=== PATIENT | male | born 1975 | race Caucasian/White ===

== ENCOUNTER 2016-10-05 01:24 | Emergency (ER) | payer SELFPAY ==
[2016-10-05] MEDS ORDERED: IPRATROPIUM/ALBUTEROL 0.5-2.5 MG/3 ML AMPUL NEB ONE (02:54)
[2016-10-05] MEDS ORDERED: HYDROCODONE BIT/HOMATROPINE SYRUP 5 ML UDCUP PO ONE (02:54)
[2016-10-05] MEDS ORDERED: PREDNISONE 20 MG TABLET PO ONE (02:54)
[2016-10-05] MEDS ORDERED: BENZONATATE 100 MG CAPSULE PO ONE (03:35)
[2016-10-05] MEDS ORDERED: HYDROCODONE/ACETAMINOPHEN 5-325 MG TABLET PO ONE (03:35)
--- NOTE | 2016-10-05 03:39 | ER Document Report ---
ED General - General Chief Complaint: Cough Stated Complaint: CHEST WALL PAIN Notes: Patient is a 40-year-old male who presents with complaints of cough for close to 2 weeks. His abdomen being [place] with some friends. They all became sick. They've been coughing. He went to urgent care and was prescribed an antibiotic. He was feeling that her briefly but now is starting to cough again. Today he coughed hard and felt sharp pain into his right side. He did cough up "nickel size" amount of blood. 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 He's never had any severe or significant problems with bleeding. He's had no further coughing up of blood. He complains mainly now of pain in his right side every time he coughs. He is a smoker. Denies any fevers. No vomiting. No other complaints at this time. TRAVEL OUTSIDE OF THE [place] IN LAST 30 DAYS: No - Related Data Allergies/Adverse Reactions: aspirin [Aspirin] Adverse Reaction (Verified 07/13/15 09:37) NSAIDS (Non-Steroidal Anti-Inflamma [Nsaids] Adverse Reaction (Verified 09:37) Past Medical History - Social History Smoking Status: Current Every Day Smoker Frequency of alcohol use: None Drug Abuse: None Family History: Reviewed & Not Pertinent Patient has suicidal ideation: No Patient has homicidal ideation: No Pulmonary Medical History: Reports: Hx Bronchitis, Hx Pneumonia Neurological Medical History: Reports: Hx Migraine Endocrine Medical History: Reports: Hx Diabetes Mellitus Type 2 Renal/ Medical History: Denies: Hx Peritoneal Dialysis Past Surgical History: Reports: Hx Orthopedic Surgery - rt foot torn ligament, L5-S1 fusion - Immunizations Hx Diphtheria, Pertussis, Tetanus Vaccination: Yes - 2007 Review of Systems - Review of Systems Notes: My Normal Review Basic REVIEW OF SYSTEMS: CONSTITUTIONAL : Denies fever, chills, or sweats. Denies recent illness. EENT: Denies eye, ear, throat, or mouth pain or symptoms. Denies nasal or sinus congestion. CARDIOVASCULAR: Pain in right side of chest from coughing. RESPIRATORY: Cough GASTROINTESTINAL: Denies abdominal pain. Denies nausea, vomiting, or diarrhea. Denies constipation. Last BM: MUSCULOSKELETAL: Denies neck or back pain or joint pain or swelling. SKIN: Denies rash or skin lesions. HEMATOLOGIC : Carrier for factor XI deficiency. NEUROLOGICAL: Denies altered mental status or loss of consciousness. Denies headache. Denies weakness or paralysis or loss of use of either side. Denies problems with gait or speech. Denies sensory or motor loss. ALL OTHER SYSTEMS REVIEWED AND NEGATIVE. Physical Exam - Vital signs Vitals: Temp Pulse Resp BP Pulse Ox 98.1 F 80 18 121/86 H 97 10/05/16 01:31 10/05/16 01:31 10/05/16 01:10/05/16 01:10/05/16 01:31 - Notes Notes: General Appearance: Well nourished, alert, cooperative, no acute distress, moderate obvious discomfort. Current dry cough during exam. Vitals: reviewed, See vital signs table. Head: no swelling or tenderness to the head Eyes: PERRL, EOMI, Conjuctiva clear Mouth: No decreasd moisture Throat: No tonsillar inflammation, No airway obstruction, No lymphadenopathy Neck: Supple, no neck tenderness, No thyromegaly Lungs: No wheezing, No rales, No rhonci, No accessory muscle use, good air exchange bilaterally. Heart: Normal rate, Regular rythm, No murmur, no rub Chest wall: Pain to palpation of the right lateral ribs of the chest wall. Abdomen: Normal BS, soft, No rigidity, No abdominal tenderness, No guarding, no rebound, no abdominal masses, no organomegaly Extremities: good pulses in all extremities, , no edema. Skin: warm, dry, appropriate color, no rash Neuro: speech clear, oriented x 3, normal affect, responds appropriately to questions. Course - Vital Signs Vital signs: Temp Pulse Resp BP Pulse Ox 98.1 F 80 18 121/86 H 97 10/05/16 01:31 10/05/16 01:31 10/05/16 01:10/05/16 01:10/05/16 01:31 - Transfer of Care Notes: 10/05/16 04:24 Patient still has some cough but just decreasing slightly since receiving the breathing treatment. I will discharge him home with prednisone and an albuterol inhaler. We'll discharge him home with Hycodan cough medicine to help with the cough as well as the pain. Encouraged to return to ER immediately if he has fevers, recurrent coughing up of blood, worsening pain, difficulty breathing, or feels unwell. Patient agrees with plan and will be discharged home. Dictation of this chart was performed using voice recognition software; therefore, there may be some unintended grammatical errors. Discharge - Discharge Clinical Impression: Bronchitis, Rib pain on right side, Pleurisy Condition: Good Disposition: HOME, SELF-CARE Instructions: Oral Narcotic Medication ([facility]) Additional Instructions: BRONCHITIS: You have acute bronchitis. This disease is an infection or inflammation of the air passageways in your lungs. Symptoms usually include cough, low grade fever, shortness of breath, and wheezing. The cough usually persists for a couple of weeks. Most cases of bronchitis get better without antibiotics. We prescribe antibiotics when we believe bacteria are damaging your airways, or if there's high risk the bronchitis will worsen into pneumonia. Increase your fluid intake. A cool mist humidifier may make your lungs more comfortable. An expectorant (cough medicine that loosens phlegm) can help. If you smoke, STOP!!! Recovery from bronchitis can be somewhat slow, but you should see improvement within a day or two. Repeated episodes of bronchitis may result in lung damage -- for example, chronic bronchitis, recurrent pneumonias, or emphysema. Call the doctor if you develop increasing fever, shortness of breath, chest pain, bloody sputum, or otherwise worsen. If you have not improved at all after several days, contact the physician. COUGH-SUPPRESSANT & EXPECTORANT MEDICATION: You are to use a cough medication as needed for relief of symptoms. This medicine is a combination of an expectorant (to make the mucous thinner and more easily "coughed up") and a cough suppressant (to reduce the frequency of coughing). The cough-suppressant medicine is related to narcotics. You may experience mild nausea and sleepiness. Some patients who are very sensitive to narcotics may have stomach pain from this medicine. Taking the medicine with food reduces these side effects. Do not drive or work with machinery until you know how this medicine affects you. The expectorant should have no side effects. Iodine-containing expectorants (such as organidin) should not be taken by persons with active thyroid disease unless approved by your doctor. Call the doctor if you develop shortness of breath, hives, rash, itching, lightheadedness, or severe nausea and vomiting. INHALED BRONCHODILATORS: You have received a treatment of and/or prescription for an inhaled bronchodilator -- a medication which stimulates the airways in the lung to dilate. This improves the flow of air in asthma, bronchitis, and emphysema. These medicines have some similarity to adrenaline, and can cause similar side effects: shakiness, racing heart, and a sense of nervousness. These side effects decrease with time. Contact your doctor if these side effects are severe. Do not over-use the medicine. Too-frequent use of the inhaler may make it ineffective. Call your doctor if the inhaler is not controlling your symptoms at the prescribed doses. SMOKING: If you smoke, you should stop smoking. The tar and chemicals in cigarette smoke are harmful. Smoking has been shown to cause: emphysema chronic bronchitis lung cancer mouth and throat cancer stomach and pancreas cancer premature aging defects In addition, smoking increases ear and lung infections in children of smokers. FOLLOW-UP CARE: If you have been referred to a physician for follow-up care, call the physician s office for an appointment as you were instructed or within the next two days. If you experience worsening or a significant change in your symptoms, notify the physician immediately or return to the Emergency Department at any time for re-evaluation. Please return to the ER immediately if you have worsening pain, fevers, vomiting , or recurrence of coughing up blood. Please follow up with a doctor in 2 days for reevaluation. You can use the albuterol inhaler as 2 puffs every 4 hours as needed for cough and wheezing. Prescriptions: Hydrocodone Bit/Homatropine [Hycodan Syrup 5-1.5 mg/5 ml Ud Cup] 5 ml PO Q4HP PRN #100 ml PRN Reason: Prednisone [Deltasone 20 mg Tablet] 3 tab PO DAILY 3 Days Forms: Return to Work
[2016-10-05 05:04] VITALS: BP 118/76
== END 2016-10-05 04:45 | disposition home or self-care (01) ==
LOC: ER 01:24
DX: J40 Bronchitis, not specified as acute or chronic (principal); R09.1 Pleurisy; R07.81 Pleurodynia; R07.89 Other chest pain; F17.200 Nicotine dependence, unspecified, uncomplicated; E11.9 Type 2 diabetes mellitus without complications; Z88.6 Allergy status to analgesic agent; Z98.1 Arthrodesis status
CPT/HCPCS: 99283; 71101; J7512; J7620

== ENCOUNTER 2017-03-11 16:52 | Emergency (ER) | payer SELFPAY ==
[2017-03-11 17:06] VITALS: BP 132/76
[2017-03-11] MEDS ORDERED: PREDNISONE 20 MG TABLET PO ONE (17:57)
--- NOTE | 2017-03-11 18:06 | ER Document Report ---
ED Extremity Problem, Upper - General Chief Complaint: Elbow Injury Stated Complaint: ELBOW INJURY Time Seen by Provider: 03/11/17 17:41 Mode of Arrival: Ambulatory Information source: Patient Notes: 41-year-old male presents to ED for complaint of right elbow pain. He states he has a history of tendinitis. He states the pain radiates to his hand and his armpit. He states he has a large firm tendon in his antecubital and in his axilla. 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 He states it is painful to straighten out his arm or to raise his arm for the last 3 or 4 days TRAVEL OUTSIDE OF THE [place] IN LAST 30 DAYS: No - HPI Patient complains to provider of: Right, Elbow, Forearm, Other - He will Onset: Other - Chronic was getting better went back to work and now is worse Recent injury: No Quality of pain: Sharp, Stabbing, Throbbing Severity of pain: Severe Pain Level: 5 Context: Other - Overuse of the arm Exacerbated by: Movement, Exertion Relieved by: Rest, Positioning Similar symptoms previously: Yes Recently seen / treated by doctor: Yes - Related Data Allergies/Adverse Reactions: aspirin [Aspirin] Adverse Reaction (Verified 03/11/17 17:04) NSAIDS (Non-Steroidal Anti-Inflamma [Nsaids] Adverse Reaction (Verified 17:04) Past Medical History - General Information source: Patient - Social History Smoking Status: Current Every Day Smoker Cigarette use (# per day): Yes - Half a pack per day Chew tobacco use (# tins/day): No Smoking Education Provided: Yes - Less than 2 minutes Frequency of alcohol use: None Drug Abuse: None 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 Lives with: Alone Family History: Reviewed & Not Pertinent Patient has suicidal ideation: No Patient has homicidal ideation: No - Past Medical History Cardiac Medical History: Reports: None Pulmonary Medical History: Reports: Hx Bronchitis, Hx Pneumonia EENT Medical History: Reports: None Neurological Medical History: Reports: Hx Migraine Endocrine Medical History: Reports: Hx Diabetes Mellitus Type 2 Renal/ Medical History: Reports: None Malignancy Medical History: Reports None GI Medical History: Reports: None Musculoskeltal Medical History: Reports Hx Musculoskeletal Deformity, Reports Hx Musculoskeletal Trauma Skin Medical History: Reports None Psychiatric Medical History: Reports: None Traumatic Medical History: Reports: None Infectious Medical History: Reports: None Past Surgical History: Reports: Hx Orthopedic Surgery - rt foot torn ligament, L5-S1 fusion - Immunizations Hx Diphtheria, Pertussis, Tetanus Vaccination: Yes - 2007 Review of Systems - Review of Systems Constitutional: No symptoms reported EENT: No symptoms reported Cardiovascular: No symptoms reported Respiratory: No symptoms reported Gastrointestinal: No symptoms reported Genitourinary: No symptoms reported Male Genitourinary: No symptoms reported Musculoskeletal: Joint pain, Joint swelling, Other - 3 firmed Pont tendons and the right axilla and antecubital Skin: No symptoms reported Hematologic/Lymphatic: No symptoms reported Neurological/Psychological: No symptoms reported -: Yes All other systems reviewed and negative Physical Exam - Vital signs Vitals: Temp Pulse Resp BP Pulse Ox 98.5 F 62 16 132/76 H 97 03/11/17 17:00 03/11/17 17:00 03/11/17 17:00 03/11/17 17:00 03/11/17 17:00 Interpretation: Normal - General General appearance: Appears well, Alert - HEENT Head: Normocephalic, Atraumatic Eyes: Normal Pupils: PERRL - Respiratory Respiratory status: No respiratory distress Chest status: Nontender Breath sounds: Normal Chest palpation: Normal - Cardiovascular Rhythm: Regular Heart sounds: Normal auscultation Murmur: No - Abdominal Inspection: Normal Distension: No distension Bowel sounds: Normal Tenderness: Nontender Organomegaly: No organomegaly - Back Back: Normal, Nontender - Extremities General upper extremity: Normal color, Normal temperature General lower extremity: Normal inspection, Nontender, Normal color, Normal ROM , Normal temperature, Normal weight bearing. No: Aurora's sign Shoulder: Tender, Limited ROM, Other - Very taut tendons in the right axilla with tenderness down the right arm Arm: Tender Elbow: Tender, Limited ROM - ., Other - Very taut attendance and the antecubital limited range of motion tenderness up the arm Forearm: Normal Wrist: Normal Hand: Normal - Neurological Neuro grossly intact: Yes Cognition: Normal Orientation: AAOx4 [place] Coma Scale Eye Opening: Spontaneous Andie Coma Scale Verbal: Oriented Andie Coma Scale Motor: Obeys Commands Andie Coma Scale Total: 15 Speech: Normal Motor strength normal: LUE, RUE, LLE, RLE Sensory: Normal - Psychological Associated symptoms: Normal affect, Normal mood - Skin Skin Temperature: Warm Skin Moisture: Dry Skin Color: Normal Course - Re-evaluation Re-evalutation: 03/11/17 21:36 Dr. Strickland consulted concerning the abnormality of the tendons in the antecubital and axilla. He came and examined the patient stated he had severe tendinitis and needed to not lift his arm above his head or work for at least 2 days. He stated patient need to be placed on prednisone and nonsteroidals. Patient states he has Aleve at home and does not need a prescription for that. He states he has nonsteroidals but he has a factor XI abnormalities and is not supposed to take them very often. He was prescribed prednisone Dosepak. He was instructed to follow-up with his orthopedic MD by telephone tomorrow to schedule follow-up visit as soon as possible. Verbalized understanding of the importance of follow-up with orthopedics. - Vital Signs Vital signs: Temp Pulse Resp BP Pulse Ox 98.5 F 62 16 132/76 H 97 03/11/17 17:00 03/11/17 17:00 03/11/17 17:00 03/11/17 17:00 03/11/17 17:00 Discharge - Discharge Clinical Impression: tendonitis upper arm right, Tendonitis of elbow, right Condition: Stable Disposition: HOME, SELF-CARE Additional Instructions: Tendonitis The pain you are having is due to tendonitis -- an inflammation around a muscle tendon. It's usually caused by overuse or repeated minor injuries ( strains) of the tendon. Tendonitis can take two to four weeks to heal. In fact, you may actually worsen for a few days despite treatment. Tendonitis is usually treated with rest, local heat, and antiinflammatory medication. Sometimes cold packs are recommended if the tendonitis has just started. If the pain is severe or prolonged, cortisone injections may be required. Call the doctor if pain or swelling become severe, if new discoloration or redness appears, or if numbness is noted. STEROID MEDICATION: You have been given a medicine of the cortisone/steroid class. This medication is used to control inflammation or allergy. It is usually only given for a short period of time, until the acute process subsides. There are usually no side effects from short-term use of cortisone-like medications. Some persons feel an increased sense of well-being and are not sleepy at bedtime. Long-term use of cortisone medications is best avoided, unless required for a severe condition. If your condition does not remit, or relapses after the course of corticosteroid medication, you should consult your physician. Anti-Inflammatory Medication You have received a prescription for an antiinflammatory agent. This is an excellent, safe drug for pain control. In addition, it has potent antiinflammatory effects which are beneficial, especially in the treatment of injuries, arthritis, or tendonitis. It's best to take this medicine with food. Persons with ulcer disease or allergy to aspirin should notify their physician of this before taking this drug. Take the medication exactly as prescribed. Don't take additional doses unless instructed to do so by your doctor. If you develop wheezing, shortness of breath, hives, faintness, stomach pain, vomiting, or dark black stools, return for re-evaluation at once. USE OF TYLENOL (ACETAMINOPHEN): Acetaminophen may be taken for pain relief or fever control. It's much safer than aspirin, offering a wider range of "safe" dosages. It is safe during . Some brand names are Tylenol, Panadol, Datril, Anacin 3, Tempra, and Liquiprin. Acetaminophen can be repeated every four hours. The following are maximum recommended dosages: WEIGHT Dose Drops Elixir Chewable( 80mg) (LBS.) drprs=droppers tsp=teaspoon 6 40 mg 0.4 ml (1/2) 6-11 80 mg 0.8 ml (full) tsp 1 tab 12-16 120 mg 1 1/2 drprs 3/4 tsp 1 1/2 tabs 17-23 160 mg 2 drprs 1 tsp 2 tabs 24-30 240 mg 3 drprs 1 1/2 tsp 3 tabs 30-35 320 mg 2 tsp 4 tabs 36-41 360 mg 2 1/4 tsp 4 1/2 tabs 42-47 400 mg 2 1/2 tsp 5 tabs 48-53 480 mg 3 tsp 6 tabs 54-59 520 mg 3 1/4 tsp 6 1/2 tabs 60-64 560 mg 3 1/2 tsp 7 tabs 65-70 600 mg 3 3/4 tsp 7 1/2 tabs 71-76 640 mg 4 tsp 8 tabs 77-82 720 mg 4 1/2 tsp 9 tabs 83-88 800 mg 5 tsp 10 tabs >89 pounds or adults 650 mg to 900 mg Acetaminophen can be repeated every four hours. Maximum dose not to exceed 4000 mg a day. These maximum recommended dosages are slightly higher than the dosages written on the product container, but these dosages are very safe and below the toxic dosage for acetaminophen. ICE PACKS: Apply ice packs frequently against the painful area. Many different schedules are recommended, such as "20 minutes on, 20 minutes off" or "one hour ice, two hours rest." If you need to work, you may need to go longer between ice treatments. You should plan to have the area ice packed AT LEAST one fourth of the time. The ice should be applied over the wrap, tape, or splint, or over a layer of cloth -- not directly against the skin. Some ice bags have a built-in cloth and can be put directly on the skin. WARM PACKS: After approximately two days, apply gentle heat (such as a heating pad or hot water bottle) for about 20 to 30 minutes about every two hours -- at least four times daily. Warmth and elevation will help you make a more rapid recovery , and will ease the pain considerably. Do not use HOT heat, and never apply heat for longer than 30 minutes. The continuous heat can invisibly damage skin and muscles -- even when no burn is seen on the surface. Damaged muscles can make you MORE sore. FOLLOW-UP CARE: If you have been referred to a physician for follow-up care, call the physician s office for an appointment as you were instructed or within the next two days. If you experience worsening or a significant change in your symptoms, notify the physician immediately or return to the Emergency Department at any time for re-evaluation. Call [place] [facility] tomorrow and schedule a follow-up appointment for your tendinitis. Prescriptions: Prednisone [Deltasone 10 mg Tablet] 10 mg PO ASDIR PRN #21 tablet PRN Reason: Forms: Elevated Blood Pressure, Special Work Note, Smoking Cessation Education , Return to Work
== END 2017-03-11 18:33 | disposition home or self-care (01) ==
LOC: ER 16:52
DX: M77.9 Enthesopathy, unspecified (principal); F17.210 Nicotine dependence, cigarettes, uncomplicated; E11.9 Type 2 diabetes mellitus without complications; Z98.1 Arthrodesis status; Z88.6 Allergy status to analgesic agent
CPT/HCPCS: 99283; J7512

== ENCOUNTER 2018-05-07 18:36 | Emergency (ER) | payer SELFPAY ==
[2018-05-07 18:41] VITALS: BP 131/96
--- NOTE | 2018-05-07 19:15 | ER Document Report ---
HPI - HPI Patient complains to provider of: Toothache Pain Level: 3 Context: Patient is a 42-year-old male presenting to the emergency department complaining of tooth pain and face swelling. Patient states for the last 3 days he has had increased pain in tooth #10 and noticed he had facial swelling. Patient states he had leftover penicillin from the last time he had a toothache so he has been taking it for the last 3 days. Patient states he knows he has very bad dentition and is in the process of getting all of his teeth pulled to get dentures. Patient denies fever. Past medical history: None Medications: None Allergies: Aspirin Past Medical History - General Information source: Patient - Social History Smoking Status: Current Every Day Smoker Lives with: Family Family History: Reviewed & Not Pertinent Pulmonary Medical History: Reports: Hx Bronchitis, Hx Pneumonia Neurological Medical History: Reports: Hx Migraine Endocrine Medical History: Reports: Hx Diabetes Mellitus Type 2 Renal/ Medical History: Denies: Hx Peritoneal Dialysis Musculoskeletal Medical History: Reports Hx Musculoskeletal Deformity, Reports Hx Musculoskeletal Trauma Past Surgical History: Reports: Hx Orthopedic Surgery - rt foot torn ligament, L5-S1 fusion - Immunizations Hx Diphtheria, Pertussis, Tetanus Vaccination: Yes - 2007 [facility] Provider Document - CONSTITUTIONAL Agree With Documented VS: Yes Notes: GENERAL: Alert, interacts well. No acute distress. HEAD: Normocephalic, atraumatic. No facial swelling noted EYES: Pupils equal, round, and reactive to light. Extraocular movements intact. ENT: Oral mucosa moist, tongue midline. Very poor dentition, multiple teeth missing, multiple teeth ground down to black stubs. Patient is complaining about tooth #10 which is to basically, level and black. Gum minorly erythematous. No fluctuance or indurated areas felt. NO ludwigs angina NECK: Full range of motion. Supple. Trachea midline. LUNGS: Clear to auscultation bilaterally, no wheezes, rales, or rhonchi. No respiratory distress. HEART: Regular rate and rhythm. No murmur ABDOMEN: Soft, non-tender. Non-distended. Bowel sounds present in all 4 quadrants. EXTREMITIES: Moves all 4 extremities spontaneously. No edema, normal radial and dorsalis pedis pulses bilaterally. No cyanosis. BACK: no cervical, thoracic, lumbar midline tenderness. No saddle anesthesia, normal distal neurovascular exam. NEUROLOGICAL: Alert and oriented x3. Normal speech. cranial nerves II through XII grossly intact. PSYCH: Normal affect, normal mood. SKIN: Warm, dry, normal turgor. No rashes or lesions noted. - INFECTION CONTROL TRAVEL OUTSIDE OF THE [place] IN LAST 30 DAYS: No Course - Re-evaluation Re-evalutation: 05/07/18 19:14 Long conversation with patient about taking old antibiotics. No facial swelling noted at this time. Patient states the facial swelling has since resolved since taking penicillin. States he still has pain in his gums and his tooth. Will give oral antibiotics. Return precautions discussed. - Vital Signs Vital signs: Temp Pulse Resp BP Pulse Ox 98.6 F 90 18 131/96 H 95 05/07/18 18:40 05/07/18 18:40 05/07/18 18:40 05/07/18 18:40 05/07/18 18:40 Discharge - Discharge Clinical Impression: Toothache, Dental caries Condition: Stable Disposition: HOME, SELF-CARE Instructions: [facility], Toothache ([facility]), Clindamycin ([facility]) Prescriptions: Clindamycin HCl [Cleocin HCl] 150 mg PO QID 10 Days capsule
== END 2018-05-07 19:30 | disposition home or self-care (01) ==
LOC: ER 18:36
DX: K02.9 Dental caries, unspecified (principal); R22.0 Localized swelling, mass and lump, head; F17.200 Nicotine dependence, unspecified, uncomplicated; E11.9 Type 2 diabetes mellitus without complications; Z98.1 Arthrodesis status
CPT/HCPCS: 99282

== ENCOUNTER 2019-06-26 06:30 | Emergency (ER) | payer SELFPAY ==
[2019-06-26] MEDS ORDERED: DEXAMETHASONE 4 MG TABLET PO ONE (08:57)
[2019-06-26] MEDS ORDERED: PENICILLIN G BENZATHINE 1.2 MILLION UNIT/2 ML DISP.SYRIN IM ONE (08:57)
[2019-06-26] MEDS ORDERED: ACETAMINOPHEN 325 MG TABLET PO ONE (08:57)
--- NOTE | 2019-06-26 09:00 | ER Document Report ---
HPI - HPI Time Seen by Provider: 06/26/19 08:10 Onset: Other - 3 days Onset/Duration: Worse Quality of pain: Achy Pain Level: 3 Context: Patient presents with cough for the past week sore throat that started 2 days ago. Patient reports fever yesterday. Patient is concerned about strep pharyngitis. Associated Symptoms: Body/muscle aches, Fever, Sore throat Exacerbated by: Denies Relieved by: Denies Similar symptoms previously: Yes Recently seen / treated by doctor: No - ROS ROS below otherwise negative: Yes Systems Reviewed and Negative: Yes All other systems reviewed and negative - EENT EENT: REPORTS: Sore Throat, Ear Pain. DENIES: Eye problems - NEURO Neurology: DENIES: Weakness, Vision blurred, Dizzinesss / Vertigo - RESPIRATORY Respiratory: REPORTS: Coughing - GASTROINTESTINAL Gastrointestinal: DENIES: Nausea, Patient vomiting - DERM Skin Color: Normal Skin Problems: None Past Medical History - General Information source: Patient - Social History Smoking Status: Current Every Day Smoker Chew tobacco use (# tins/day): No Frequency of alcohol use: None Drug Abuse: None Occupation: [employer] Family History: Reviewed & Not Pertinent Patient has suicidal ideation: No Patient has homicidal ideation: No - Medical History Medical History: Other - Factor XI deficiency Pulmonary Medical History: Reports: Hx Bronchitis, Hx Pneumonia Neurological Medical History: Reports: Hx Migraine Renal/ Medical History: Denies: Hx Peritoneal Dialysis Musculoskeletal Medical History: Reports Hx Musculoskeletal Deformity, Reports Hx Musculoskeletal Trauma Past Surgical History: Reports: Hx Orthopedic Surgery - rt foot torn ligament, L5-S1 fusion - Immunizations Hx Diphtheria, Pertussis, Tetanus Vaccination: Yes - 2007 [employer] [facility] [employer] [facility] Provider Document - CONSTITUTIONAL Agree With Documented VS: Yes Exam Limitations: No Limitations General Appearance: WD/WN, No Apparent Distress - INFECTION CONTROL TRAVEL OUTSIDE OF THE [place] IN LAST 30 DAYS: No - HEENT HEENT: Atraumatic, Pharyngeal Tenderness, Pharyngeal Erythema. negative: Tympanic Membrane Red, Tympanic Membrane Bulging - NECK Neck: Lymphadenopathy-Left, Lymphadenopathy-Right - RESPIRATORY Respiratory: Breath Sounds Normal, No Respiratory Distress, Chest Non-Tender - CARDIOVASCULAR Cardiovascular: Regular Rate, Regular Rhythm, No Murmur - GI/ABDOMEN Gastrointestinal: Abdomen Soft - BACK Back: Normal Inspection - MUSCULOSKELETAL/EXTREMETIES Musculoskeletal/Extremeties: KAY CHRISTIANSON - NEURO Level of Consciousness: Awake, Alert, Appropriate Motor/Sensory: No Motor Deficit - DERM Integumentary: Warm, Dry, No Rash Course - Re-evaluation Re-evalutation: 06/26/19 08:58 Patient with positive strep test at this time. Patient agreeable with Bicillin injection. 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 Discussed worsening symptoms that patient should return immediately for. Patient verbalized understanding and agrees with plan of care. - Vital Signs Vital signs: Temp Pulse Resp BP Pulse Ox 98.2 F 74 16 140/77 H 97 06/26/19 06:36 06/26/19 06:36 06/26/19 06:36 06/26/19 06:36 06/26/19 06:36 Discharge - Discharge Clinical Impression: Strep throat Condition: Stable Disposition: HOME, SELF-CARE Instructions: Acetaminophen, Antibiotic Shot ([facility]), Fever ([facility]), Strep Throat ([facility]) Additional Instructions: Return immediately for any new or worsening symptoms Followup with your primary care provider, call tomorrow to make a followup appointment Forms: Return to Work Referrals: [facility] [Provider Group] - Follow up as needed
[2019-06-26 09:25] VITALS: BP 111/67
== END 2019-06-26 09:25 | disposition home or self-care (01) ==
LOC: ER 06:30
DX: J02.0 Streptococcal pharyngitis (principal); R50.9 Fever, unspecified; M79.10 Myalgia, unspecified site; H92.09 Otalgia, unspecified ear; R05 Cough; F17.200 Nicotine dependence, unspecified, uncomplicated
CPT/HCPCS: 99283; 96372; 87880; J8540; J0561

== ENCOUNTER 2020-05-31 20:04 | Emergency (ER) | payer SELFPAY ==
[2020-05-31] MEDS ORDERED: KETOROLAC TROMETHAMINE 60 MG/2 ML SDV IM ONE (20:20)
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
--- NOTE | 2020-05-31 21:08 | RADIOLOGY REPORT (SQ) ---
EXAM DESCRIPTION: X-rays left shoulder 3 views COMPLETED DATE/TME: 05/31/2020 20:36 CLINICAL HISTORY: 44 years, Male, pain COMPARISON: None. NUMBER OF VIEWS: TECHNIQUE: LIMITATIONS: None. FINDINGS: No fracture or dislocation. No evidence of arthritis. Mineralization of bone appears normal. There are no soft tissue calcifications. IMPRESSION: No radiographic abnormality. copyright 2010 [employer] All Rights Reserved
[2020-05-31 21:31] VITALS: BP 104/62
== END 2020-05-31 21:37 | disposition home or self-care (01) ==
LOC: ER 20:04
DX: M25.512 Pain in left shoulder (principal); F17.200 Nicotine dependence, unspecified, uncomplicated; E11.9 Type 2 diabetes mellitus without complications; F19.139 Other psychoactive substance abuse with withdrawal, unspecified; Z79.899 Other long term (current) drug therapy
CPT/HCPCS: 99284; 96372; 73030; J1885

== ENCOUNTER 2020-06-25 09:21 | Emergency (ER) | payer OTHER ==
[2020-06-25] MEDS ORDERED: KETOROLAC TROMETHAMINE 60 MG/2 ML SDV IM ONE (10:27)
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
[2020-06-25 11:37] VITALS: BP 121/85
== END 2020-06-25 11:35 | disposition home or self-care (01) ==
LOC: ER 09:21
DX: M25.512 Pain in left shoulder (principal); R51.9 Headache, unspecified; V89.2XXA Person injured in unspecified motor-vehicle accident, traffic, initial encounter; E11.9 Type 2 diabetes mellitus without complications; F17.200 Nicotine dependence, unspecified, uncomplicated
CPT/HCPCS: 99284; 96372; 73030; J1885